=== PATIENT | female | born 1935 | race African-American/Black ===

== ENCOUNTER 2022-05-29 10:01 | Inpatient (IN) | payer MEDICARE, BC ==
[~2022-05-29] VITALS: Ht 167.6 cm; Wt 86.2 kg
[~2022-05-29 10:01] MED LIST: AMLO5TAB88 PO; CLON0.1T14 PO; LOSA25TA3 PO; THIA100T72 PO
[2022-05-29] MEDS ORDERED: ALBUTEROL (0.083%) 2.5MG/3ML NEB HHN STA (10:09)
[2022-05-29] MEDS ORDERED: METHYLPREDNISOLONE SOD SUCC 125 MG/2 ML VIAL IV STA (10:09)
[2022-05-29] MEDS ORDERED: MAGNESIUM 2 G PREMIX 50 ML IV STA (10:09)
[2022-05-29] MEDS ORDERED: IPRATROPIUM BROMIDE (0.02%) 0.5MG/2.5ML NEB HHN STA (10:09)
[2022-05-29 10:31] LABS: BASOPHILS % 0.5 % (0.0-2.0); EOSINOPHILS % 0.5 % (0.0-5.0); HEMATOCRIT. 43.5 % (36.0-48.0); HEMOGLOBIN. 14.8 g/dL (12.0-16.0); LYMPHOCYTES % 30.3 % (20.0-50.0); MEAN CORPUSCULAR VOLUME 90.9 fL (81.0-99.0); MONOCYTES % 8.8 % (2.0-8.0); NEUTROPHILS % 59.9 % (40.0-76.0); PLATELET 170 x1000/uL (130-400); RED BLOOD CELL COUNT 4.79 mill/uL (4.2-5.4)
[2022-05-29 10:36] LABS: CHLORIDE 108 mEq/L (98-107)
[2022-05-29] MEDS ORDERED: IPRATROPIUM/ALBUTEROL 0.5-3(2.5)MG/3ML NEB NEB PRN (13:30)
[2022-05-29] MEDS ORDERED: MAGNESIUM/ALUMINUM HYDROXIDE/SIMETHICONE 30ML UDC PO PRN (13:30)
[2022-05-29] MEDS ORDERED: NITROGLYCERIN 0.4MG TABLET SL SL PRN (13:30)
[2022-05-29] MEDS ORDERED: ZOLPIDEM TARTRATE 5MG TABLET PO PRN (13:30)
[2022-05-29] MEDS ORDERED: ACETAMINOPHEN 325MG TABLET PO PRN ×2 (13:30)
[2022-05-29] MEDS ORDERED: CLONIDINE 0.1MG TABLET PO PRN (13:30)
[2022-05-29] MEDS ORDERED: KETOROLAC 15MG/ML VIAL IV PRN (13:30)
[2022-05-29] MEDS ORDERED: ONDANSETRON HCL 4MG/2ML INJ IV PRN (13:30)
[2022-05-29] MEDS ORDERED: GUAIFENESIN 200MG/10ML SUGAR FREE UDC PO PRN (13:30)
[2022-05-29] MEDS ORDERED: LEVOFLOXACIN 750MG PREMIX 150 ML IV SCH ×2 (14:00→20:00)
[2022-05-29 14:07] LABS: BG BASE EXCESS -0.5 mmol/L (-2.0-2.0); BG CARBOXYHEMOGLOBIN 0.7 % (0.5-1.5); BG FRACTION INSPIRED OXYGEN 40; BG HCO3 ACT 22.3 mmol/L (22.0-26.0); BG METHEMOGLOBIN 0.4 % (0.0-1.5); BG OXYGEN SATURATION 87.9 % (92.0-98.5); BG OXYHEMOGLOBIN 86.9 % (94.0-97.0); BG PH 7.461 (7.350-7.450); BG PO2 52.3 mmHg (75.0-100.0); BG SAMPLE SITE RIGHT RADIAL; BG TOTAL HEMOGLOBIN 15.9 g/dL (12.0-18.0); BG VENT MODE NASAL CANNULA
[2022-05-29 14:45] LABS: T4 FREE 1.29 ng/dL (0.76-1.46)
[2022-05-29 15:00] VITALS: BP 148/82
[2022-05-29 15:00] LABS: FOLIC ACID (FOLATE) SERUM 13.4 ng/mL (>5.38)
[2022-05-29 15:22] VITALS: BP 144/54
[2022-05-29 16:00] VITALS: BP_SYST 119; BP_SYST 148; BP_DIAS 82; BP_DIAS 91
[2022-05-29] MEDS ORDERED: IPRATROPIUM/ALBUTEROL 0.5-3(2.5)MG/3ML NEB HHN SCH (16:00)
[2022-05-29] MEDS: METHYLPREDNISOLONE SOD SUCC 125 MG/2 ML VIAL IV SCH ×2 (16:02→23:16)
[2022-05-29] MEDS: ENOXAPARIN 40MG/0.4ML SYR SUBCUT SCH (16:03)
[2022-05-29] MEDS: CLONIDINE 0.1MG TABLET PO SCH ×2 (16:12→23:20)
[2022-05-29] MEDS: FAMOTIDINE 20MG TABLET PO SCH (16:13)
[2022-05-29] MEDS ORDERED: IPRATROPIUM BROMIDE (0.02%) 0.5MG/2.5ML NEB HHN PRN (16:30)
[2022-05-29] MEDS ORDERED: POTASSIUM CHLORIDE 20MEQ/PACKET PO NR (16:45)
[2022-05-29] MEDS ORDERED: DEXTROSE 50% WATER 50ML SYRINGE IV PRN (16:45)
[2022-05-29] MEDS: BLOOD SUGAR DIAGNOSTIC STRIP TEST SCH ×2 (17:30→21:00)
[2022-05-29 18:00] VITALS: BP 119/91
[2022-05-29 18:00] LABS: CREATINE KINASE MB FRACTION 1.4 ng/mL (0.5-3.6)
[2022-05-29] MEDS: INSULIN LISPRO 100 UNITS/ML SUBCUT SCH ×2 (19:02→23:40)
[2022-05-29 20:59] VITALS: BP 133/73
[2022-05-29] MEDS: IPRATROPIUM BROMIDE (0.02%) 0.5MG/2.5ML NEB HHN SCH (21:26)
[2022-05-29 22:00] VITALS: BP 141/72
[2022-05-29] MEDS: ASCORBIC ACID 500 MG TABLET PO SCH (23:21)
[2022-05-29] MEDS: LISINOPRIL 20MG TABLET PO SCH (23:22)
[2022-05-30] VITALS (13 sets, daily range): BP systolic 95–134; BP diastolic 40–76
[2022-05-30 00:41] LABS: CREATINE KINASE MB FRACTION 1.9 ng/mL (0.5-3.6)
[2022-05-30] MEDS: IPRATROPIUM BROMIDE (0.02%) 0.5MG/2.5ML NEB HHN SCH ×6 (01:18→20:08)
[2022-05-30] MEDS: METHYLPREDNISOLONE SOD SUCC 125 MG/2 ML VIAL IV SCH ×3 (07:50→21:28)
[2022-05-30] MEDS: CLONIDINE 0.1MG TABLET PO SCH ×3 (07:52→21:29)
[2022-05-30] MEDS: BLOOD SUGAR DIAGNOSTIC STRIP TEST SCH ×4 (07:58→21:29)
[2022-05-30] MEDS: ASPIRIN 325MG EC TABLET PO SCH (09:14)
[2022-05-30] MEDS: ASCORBIC ACID 500 MG TABLET PO SCH ×2 (09:14→21:28)
[2022-05-30] MEDS: FAMOTIDINE 20MG TABLET PO SCH (09:14)
[2022-05-30] MEDS: LOSARTAN POTASSIUM 50 MG TABLET PO SCH (09:17)
[2022-05-30] MEDS: LISINOPRIL 20MG TABLET PO SCH ×2 (09:17→21:28)
[2022-05-30] MEDS: INSULIN LISPRO 100 UNITS/ML SUBCUT SCH ×4 (09:18→21:30)
[2022-05-30] MEDS: AMLODIPINE 10MG TABLET PO SCH (09:22)
[2022-05-30 10:01] LABS: BASOPHILS % 0.2 % (0.0-2.0); HEMOGLOBIN. 14.2 g/dL (12.0-16.0); LYMPHOCYTES % 13.2 % (20.0-50.0); MEAN CORPUSCULAR HEMOGLOBIN 30.7 pg (28.0-32.0); MEAN CORPUSCULAR VOLUME 90.9 fL (81.0-99.0); MEAN PLATELET VOLUME 10.2 fl (7.4-10.4); MONOCYTES % 2.9 % (2.0-8.0); NEUTROPHILS % 83.7 % (40.0-76.0); PLATELET 189 x1000/uL (130-400); RED BLOOD CELL COUNT 4.62 mill/uL (4.2-5.4); RED CELL DISTRIBUTION WIDTH 16.3 % (11.6-14.6)
[2022-05-30 10:29] LABS: CHLORIDE 106 mEq/L (98-107)
[2022-05-30 16:14] LABS: BASOPHILS % 0.2 % (0.0-2.0); HEMATOCRIT. 41.8 % (36.0-48.0); HEMOGLOBIN. 13.9 g/dL (12.0-16.0); MEAN CORPUSCULAR HEMOGLOBIN 30.6 pg (28.0-32.0); MEAN CORPUSCULAR VOLUME 92.3 fL (81.0-99.0); MEAN PLATELET VOLUME 10.2 fl (7.4-10.4); MONOCYTES % 4.8 % (2.0-8.0); PLATELET 172 x1000/uL (130-400); RED BLOOD CELL COUNT 4.53 mill/uL (4.2-5.4)
[2022-05-30 16:30] LABS: CHLORIDE 101 mEq/L (98-107)
[2022-05-30 16:36] LABS: CLARITY URINE CLEAR (CLEAR); COLOR URINE YELLOW (YELLOW); KETONES URINE TRACE (NEGATIVE); LEUKOCYTE ESTERASE URINE NEGATIVE (NEGATIVE); NITRITE URINE NEGATIVE (NEGATIVE); OCCULT BLOOD URINE NEGATIVE (NEGATIVE); PH URINE 5.5 (4.5-8.0); PROTEIN URINE NEGATIVE (NEGATIVE); SPECIFIC GRAVITY URINE 1.015 (1.005-1.030); UROBILINOGEN URINE 0.2 E.U./dL (0.2-1.0)
[2022-05-30 16:37] LABS: PHOSPHORUS 3.5 mg/dL (2.5-4.9)
[2022-05-30] MEDS: ENOXAPARIN 40MG/0.4ML SYR SUBCUT SCH (17:13)
[2022-05-31] VITALS (18 sets, daily range): BP systolic 86–118; BP diastolic 47–69
[2022-05-31] MEDS: IPRATROPIUM BROMIDE (0.02%) 0.5MG/2.5ML NEB HHN SCH ×6 (04:00→21:00)
[2022-05-31] MEDS: METHYLPREDNISOLONE SOD SUCC 125 MG/2 ML VIAL IV SCH ×3 (06:32→21:30)
[2022-05-31] MEDS: CLONIDINE 0.1MG TABLET PO SCH ×3 (06:39→21:41)
[2022-05-31] MEDS: BLOOD SUGAR DIAGNOSTIC STRIP TEST SCH ×4 (07:30→21:00)
[2022-05-31] MEDS: INSULIN LISPRO 100 UNITS/ML SUBCUT SCH ×4 (08:00→21:42)
[2022-05-31] MEDS: LOSARTAN POTASSIUM 50 MG TABLET PO SCH (09:00)
[2022-05-31] MEDS: AMLODIPINE 10MG TABLET PO SCH (09:00)
[2022-05-31] MEDS: LISINOPRIL 20MG TABLET PO SCH ×2 (09:00→20:14)
[2022-05-31] MEDS: ASCORBIC ACID 500 MG TABLET PO SCH ×2 (09:00→20:13)
[2022-05-31] MEDS: ASPIRIN 325MG EC TABLET PO SCH (11:21)
[2022-05-31] MEDS: DOCUSATE SODIUM 100MG CAPSULE PO PRN (11:21)
[2022-05-31] MEDS: FAMOTIDINE 20MG TABLET PO SCH (11:22)
[2022-05-31] MEDS: ENOXAPARIN 40MG/0.4ML SYR SUBCUT SCH (18:37)
[2022-05-31] MEDS: LEVOFLOXACIN 750MG PREMIX 150 ML IV SCH (20:12)
[2022-06-01] VITALS (13 sets, daily range): BP systolic 101–144; BP diastolic 54–86
[2022-06-01] MEDS: IPRATROPIUM BROMIDE (0.02%) 0.5MG/2.5ML NEB HHN SCH ×6 (00:41→20:03)
[2022-06-01] MEDS: CLONIDINE 0.1MG TABLET PO SCH ×3 (06:00→21:22)
[2022-06-01] MEDS: METHYLPREDNISOLONE SOD SUCC 125 MG/2 ML VIAL IV SCH ×3 (06:05→21:22)
[2022-06-01] MEDS: BLOOD SUGAR DIAGNOSTIC STRIP TEST SCH ×4 (07:42→21:00)
[2022-06-01] MEDS: ASCORBIC ACID 500 MG TABLET PO SCH ×2 (07:59→21:22)
[2022-06-01] MEDS: LOSARTAN POTASSIUM 50 MG TABLET PO SCH (07:59)
[2022-06-01] MEDS: ASPIRIN 325MG EC TABLET PO SCH (07:59)
[2022-06-01] MEDS: LISINOPRIL 20MG TABLET PO SCH ×2 (08:00→21:22)
[2022-06-01] MEDS: FAMOTIDINE 20MG TABLET PO SCH (08:00)
[2022-06-01] MEDS ORDERED: TIOT18CA3 INH ×2 (08:13)
[2022-06-01] MEDS ORDERED: LEVO-65 MT ×2 (08:13)
[2022-06-01] MEDS ORDERED: P20 MT ×2 (08:13)
[2022-06-01] MEDS ORDERED: ALBU6.7H3 INH ×2 (08:13)
[2022-06-01] MEDS: AMLODIPINE 10MG TABLET PO SCH (08:14)
[2022-06-01] MEDS: INSULIN LISPRO 100 UNITS/ML SUBCUT SCH ×4 (08:20→21:57)
[2022-06-01] MEDS: ENOXAPARIN 40MG/0.4ML SYR SUBCUT SCH (15:00)
[2022-06-02] VITALS (12 sets, daily range): BP systolic 97–147; BP diastolic 53–74
[2022-06-02] MEDS: IPRATROPIUM BROMIDE (0.02%) 0.5MG/2.5ML NEB HHN SCH ×4 (00:52→16:53)
[2022-06-02] MEDS: METHYLPREDNISOLONE SOD SUCC 125 MG/2 ML VIAL IV SCH ×3 (05:09→20:47)
[2022-06-02] MEDS: CLONIDINE 0.1MG TABLET PO SCH ×3 (05:11→20:46)
[2022-06-02] MEDS: BLOOD SUGAR DIAGNOSTIC STRIP TEST SCH ×4 (07:37→20:52)
[2022-06-02] MEDS: INSULIN LISPRO 100 UNITS/ML SUBCUT SCH ×4 (07:55→20:57)
[2022-06-02] MEDS: LOSARTAN POTASSIUM 50 MG TABLET PO SCH (08:33)
[2022-06-02] MEDS: LISINOPRIL 20MG TABLET PO SCH ×2 (08:33→20:46)
[2022-06-02] MEDS: ASPIRIN 325MG EC TABLET PO SCH (08:33)
[2022-06-02] MEDS: ASCORBIC ACID 500 MG TABLET PO SCH ×2 (08:33→20:46)
[2022-06-02] MEDS: AMLODIPINE 10MG TABLET PO SCH (08:33)
[2022-06-02] MEDS: FAMOTIDINE 20MG TABLET PO SCH (08:33)
[2022-06-02] MEDS: ENOXAPARIN 40MG/0.4ML SYR SUBCUT SCH (14:44)
[2022-06-02] MEDS: LEVOFLOXACIN 750MG PREMIX 150 ML IV SCH (20:44)
[2022-06-02] MEDS: DOCUSATE SODIUM 100MG CAPSULE PO PRN (21:21)
[2022-06-03] VITALS (9 sets, daily range): BP systolic 98–123; BP diastolic 60–68
[2022-06-03] MEDS: IPRATROPIUM BROMIDE (0.02%) 0.5MG/2.5ML NEB HHN SCH ×6 (04:00→20:17)
[2022-06-03] MEDS: METHYLPREDNISOLONE SOD SUCC 125 MG/2 ML VIAL IV SCH ×3 (05:07→21:15)
[2022-06-03] MEDS: CLONIDINE 0.1MG TABLET PO SCH ×3 (05:07→21:08)
[2022-06-03] MEDS: BLOOD SUGAR DIAGNOSTIC STRIP TEST SCH ×4 (07:30→21:00)
[2022-06-03] MEDS: ASCORBIC ACID 500 MG TABLET PO SCH ×2 (08:39→21:17)
[2022-06-03] MEDS: LOSARTAN POTASSIUM 50 MG TABLET PO SCH (08:39)
[2022-06-03] MEDS: AMLODIPINE 10MG TABLET PO SCH (08:39)
[2022-06-03] MEDS: ASPIRIN 325MG EC TABLET PO SCH (08:39)
[2022-06-03] MEDS: FAMOTIDINE 20MG TABLET PO SCH (08:39)
[2022-06-03] MEDS: LISINOPRIL 20MG TABLET PO SCH ×2 (08:39→21:00)
[2022-06-03] MEDS: INSULIN LISPRO 100 UNITS/ML SUBCUT SCH ×4 (08:42→21:17)
[2022-06-03] MEDS: ENOXAPARIN 40MG/0.4ML SYR SUBCUT SCH (14:36)
[2022-06-04] VITALS: BP 133/57
[2022-06-04 04:00] VITALS: BP 128/64
[2022-06-04] MEDS: CLONIDINE 0.1MG TABLET PO SCH ×3 (05:52→22:31)
[2022-06-04] MEDS: METHYLPREDNISOLONE SOD SUCC 125 MG/2 ML VIAL IV SCH ×3 (05:52→22:31)
[2022-06-04] MEDS: BLOOD SUGAR DIAGNOSTIC STRIP TEST SCH ×4 (06:01→21:55)
[2022-06-04] MEDS: INSULIN LISPRO 100 UNITS/ML SUBCUT SCH ×4 (06:47→21:56)
[2022-06-04 08:00] VITALS: BP 110/55
[2022-06-04] MEDS: LOSARTAN POTASSIUM 50 MG TABLET PO SCH (09:49)
[2022-06-04] MEDS: LISINOPRIL 20MG TABLET PO SCH ×2 (09:50→21:55)
[2022-06-04] MEDS: ASCORBIC ACID 500 MG TABLET PO SCH ×2 (09:50→21:55)
[2022-06-04] MEDS: ASPIRIN 325MG EC TABLET PO SCH (09:50)
[2022-06-04] MEDS: FAMOTIDINE 20MG TABLET PO SCH (09:51)
[2022-06-04] MEDS: AMLODIPINE 10MG TABLET PO SCH (09:51)
[2022-06-04 12:00] VITALS: BP 117/62
[2022-06-04] MEDS: ENOXAPARIN 40MG/0.4ML SYR SUBCUT SCH (15:10)
[2022-06-04 16:00] VITALS: BP 117/56
[2022-06-04 20:00] VITALS: BP 120/54
[2022-06-05] VITALS: BP 127/53
[2022-06-05 04:00] VITALS: BP 142/51
[2022-06-05] MEDS: INSULIN LISPRO 100 UNITS/ML SUBCUT SCH ×4 (06:15→20:47)
[2022-06-05] MEDS: METHYLPREDNISOLONE SOD SUCC 125 MG/2 ML VIAL IV SCH ×3 (06:16→22:12)
[2022-06-05] MEDS: BLOOD SUGAR DIAGNOSTIC STRIP TEST SCH ×4 (06:16→20:47)
[2022-06-05] MEDS: CLONIDINE 0.1MG TABLET PO SCH ×3 (06:16→20:38)
[2022-06-05 08:00] VITALS: BP 127/63
[2022-06-05] MEDS: ASPIRIN 325MG EC TABLET PO SCH (08:53)
[2022-06-05] MEDS: ASCORBIC ACID 500 MG TABLET PO SCH ×2 (08:54→20:37)
[2022-06-05] MEDS: LOSARTAN POTASSIUM 50 MG TABLET PO SCH (08:54)
[2022-06-05] MEDS: FAMOTIDINE 20MG TABLET PO SCH (08:54)
[2022-06-05] MEDS: LISINOPRIL 20MG TABLET PO SCH ×2 (08:54→20:37)
[2022-06-05] MEDS: AMLODIPINE 10MG TABLET PO SCH (08:54)
[2022-06-05 12:00] VITALS: BP 126/64
[2022-06-05] MEDS: ENOXAPARIN 40MG/0.4ML SYR SUBCUT SCH (14:21)
[2022-06-05 16:00] VITALS: BP 124/53
[2022-06-05 20:00] VITALS: BP 123/67
[2022-06-06 04:00] VITALS: BP 111/72
[2022-06-06] MEDS: CLONIDINE 0.1MG TABLET PO SCH ×2 (05:35→14:09)
[2022-06-06] MEDS: METHYLPREDNISOLONE SOD SUCC 125 MG/2 ML VIAL IV SCH ×2 (05:36→14:10)
[2022-06-06] MEDS: BLOOD SUGAR DIAGNOSTIC STRIP TEST SCH ×2 (05:47→11:45)
[2022-06-06] MEDS: INSULIN LISPRO 100 UNITS/ML SUBCUT SCH ×2 (05:48→12:01)
[2022-06-06 08:00] VITALS: BP 116/77
[2022-06-06] MEDS: ASCORBIC ACID 500 MG TABLET PO SCH (09:23)
[2022-06-06] MEDS: LOSARTAN POTASSIUM 50 MG TABLET PO SCH (09:23)
[2022-06-06] MEDS: LISINOPRIL 20MG TABLET PO SCH (09:23)
[2022-06-06] MEDS: FAMOTIDINE 20MG TABLET PO SCH (09:23)
[2022-06-06] MEDS: AMLODIPINE 10MG TABLET PO SCH (09:23)
[2022-06-06] MEDS: ASPIRIN 325MG EC TABLET PO SCH (09:26)
[2022-06-06 11:01] VITALS: BP_SYST 120; BP_SYST 128; BP_DIAS 74; BP_DIAS 76
[2022-06-06 12:00] VITALS: BP 122/76
[2022-06-06] MEDS: ENOXAPARIN 40MG/0.4ML SYR SUBCUT SCH (15:00)
[2022-06-06 16:00] VITALS: BP 128/72
== END 2022-06-06 18:09 | disposition home health service (06) | DRG 189 ==
LOC: ER 10:01 → MICUSO 12:35 → EDBEDREQ 12:42 → EDBEDREQTM 12:42 → SUPCPDRO 13:26 → 5EST 14:45 → 5WST 06-03 22:42
PROVIDERS: ADMIT Internal Medicine; ATTEND Internal Medicine
PROC: 5A0935A Assistance with Respiratory Ventilation, Less than 24 Consecutive Hours, High Flow/Velocity Cannula (ICD-10-PCS; principal; 2022-05-30)
DX: J96.01 Acute respiratory failure with hypoxia (principal); E87.3 Alkalosis; J44.1 Chronic obstructive pulmonary disease with (acute) exacerbation; I44.2 Atrioventricular block, complete; F12.10 Cannabis abuse, uncomplicated; E11.9 Type 2 diabetes mellitus without complications; E87.6 Hypokalemia; I10 Essential (primary) hypertension; T40.715A Adverse effect of cannabis, initial encounter; K81.9 Cholecystitis, unspecified; I27.20 Pulmonary hypertension, unspecified; F10.10 Alcohol abuse, uncomplicated; E07.9 Disorder of thyroid, unspecified; Z20.822 Contact with and (suspected) exposure to COVID-19; Z85.038 Personal history of other malignant neoplasm of large intestine; Z95.0 Presence of cardiac pacemaker; Z90.710 Acquired absence of both cervix and uterus; Z93.3 Colostomy status; Z79.4 Long term (current) use of insulin; Z90.49 Acquired absence of other specified parts of digestive tract
CPT/HCPCS: 36415; 36600; 71045; 80048; 80053; 80061; 81003; 82375; 82550; 82553; 82607; 82746; 82805; 82962; 83036; 83540; 83550; 83735; 83880; 84100; 84439; 84443; 84484; 85025; 87426; 87804; 93005; 93306; 93970; 94640; 94660; 97162; 97166; 99291; C9803; J1650; J1815; J1956; J2930; J3475